=== PATIENT | female | born 1965 | race Caucasian/White ===

== ENCOUNTER → 2019-06-29 | Outpatient (CLI) | payer OTHER ==
--- NOTE | 2019-06-30 10:09 | PCVCIMAG ---
APPROVED REPORT Study performed: 06/29/2019 15:21:12 Exam: Stress Echocardiogram Indication: Hyperlipidemia, Abnormal CT scan Patient Location: Echo lab Stress Nurse: Toya Rudolph RN Status: routine Ht: 5 ft 3 in HR: 83 bpm BP: 140/80 mmHg Rhythm: NSR Medical History Medical History: Smoking Procedure The patient underwent an Exercise Stress Test using the Ted Protocol. Blood pressure, heart rate, and EKG were monitored. An Echocardiogram was performed by pipe testing technician in four stages in quad fashion. At peak stress, four selected images were obtained and placed side by side with resting images for comparison. Stress Test Details Stress Test: Exercise stress testing was performed using a Ted protocol. HR Resting HR: 83 bpmMax Heart Rate (APMHR): 168 bpm Max HR Achieved: 150 bpmTarget HR (85% APMHR): 142 bpm % of APMHR: 89 Recovery HR: 93 bpm HR response to stress: Normal HR response to stress BP Resting BP: 140/80 mmHg Max BP: 152/80 mmHg Recovery BP: 148/78 mmHg BP response to stress: Normal blood pressure response to stress. ECG Resting ECG: Sinus Rhythm Stress ECG: Sinus Rhythm Recovery ECG: Sinus Rhythm Clinical Reason for Termination: Maximal effort Exercise duration: 11 min sec Highest Stage Achieved: Stage 4: 4.2 mph at 16% grade. Exercise capacity: 13.40 METs Overall Exercise Capacity for Age: Good Stress ECG Conclusion 1. Subjectively negative for ischemia 2. Elective cartographic a negative for ischemia 3. Satisfactory functional capacity Pre-Stress Echo The resting Echocardiogram showed normal left ventricular contractility with an estimated Ejection Fraction of about >55%. Normal wall motion in all segments on baseline images. Post-Stress Echo The stress Echocardiogram showed normal left ventricular contractility with an estimated Ejection Fraction of about 60-65%. Normal augmentation of wall motion in all segments on post stress images. Clinical No clinical or ECG evidence for ischemia. Conclusion Clinical Response: Non-ischemic Exercise Capacity: Superior Stress ECG Response: Non-ischemic Stress Echo Images: Non-ischemic The left ventricle is normal in size and wall thickness in both the rest and stress images. Mild aortic insufficiency. Trace Tricuspid regurgitation. Pulmonary artery pressure is 32mmHg. 1. Low risk study 2. No arrhythmias provoked Other Information Study Quality: Good <Conclusion> The left ventricle is normal in size and wall thickness in both the rest and stress images. Mild aortic insufficiency. Trace Tricuspid regurgitation. Pulmonary artery pressure is 32mmHg. 1. Low risk study 2. No arrhythmias provoked
== END | disposition home or self-care (01) ==
LOC: PCVCIMAG 14:50
PROVIDERS: ATTEND Internal Medicine
DX: I35.1 Nonrheumatic aortic (valve) insufficiency (principal); E78.5 Hyperlipidemia, unspecified; Z87.891 Personal history of nicotine dependence
CPT/HCPCS: 93325; 93351